=== PATIENT | female | born 1955 | race Caucasian/White ===

== ENCOUNTER 2016-06-16 14:06 | Emergency (ER) | payer OTHER ==
[~2016-06-16] VITALS: Ht 162.6 cm; Wt 90.0 kg
[2016-06-16 14:08] VITALS: BP 148/78; PULSE 89; RESP 17; TEMP 98; O2SAT 98
[2016-06-16] MEDS ORDERED: KETOROLAC TROMETHAMINE 60 MG/2 ML (IM) VIAL IM ONE (14:45)
[2016-06-16] MEDS ORDERED: ORPHENADRINE INJ 60 MG/2 ML AMP IM ONE (14:45)
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
[2016-06-16] MEDS ORDERED: CYCL1TAB29 PO (16:37)
[2016-06-16] MEDS ORDERED: IBUP800T23 PO (16:37)
== END 2016-06-16 16:55 | disposition home or self-care (01) ==
LOC: NETRI 14:06
DX: S16.1XXA Strain of muscle, fascia and tendon at neck level, initial encounter (principal); M62.838 Other muscle spasm; V43.62XA Car passenger injured in collision with other type car in traffic accident, initial encounter; Y93.89 Activity, other specified; Y92.410 Unspecified street and highway as the place of occurrence of the external cause
CPT/HCPCS: 72125; 96372; 99284; J1885; J2360